=== PATIENT | male | born 1985 | race Caucasian/White ===

== ENCOUNTER 2016-02-25 18:50 | Emergency (ER) | payer MEDICAID ==
[2016-02-25] MEDS ORDERED: OPTIRAY 350 100 ML VIAL HMH IV ONE (18:51)
[2016-02-25] MEDS ORDERED: MORPHINE 4 MG/ML SYR ONE (20:11)
[2016-02-25] MEDS ORDERED: ONDANSETRON 4 MG VIAL ONE (20:11)
[2016-02-25] MEDS ORDERED: DILAUDID 1 MG/ML AMP ONE (21:39)
== END 2016-02-25 22:02 | disposition home or self-care (01) ==
LOC: ER 18:50
CPT/HCPCS: 36415; 71260; 74177; 80053; 81003; 83690; 85025; 96374; 96375